=== PATIENT | female | born 1970 | race Caucasian/White ===

== ENCOUNTER 2016-05-25 09:12 | Inpatient (IN) | payer BC, OTHER ==
[~2016-05-25] VITALS: Ht 170.2 cm; Wt 66.9 kg
[2016-05-25] MEDS ORDERED: LABETALOL 100 MG/20 ML VIAL ONE (10:41)
[2016-05-25] MEDS ORDERED: ONDANSETRON 4 MG VIAL ONE (10:42)
[2016-05-25] MEDS ORDERED: SODIUM CHLORIDE 0.9% 1,000 ML ONE (12:34)
[2016-05-25] MEDS ORDERED: niCARdipine 20MG/200ML 200 ML IV ONE (13:05)
[2016-05-25] MEDS ORDERED: BISACODYL 10 MG SUPP RECTAL PRN (13:35)
[2016-05-25] MEDS ORDERED: PROMETHAZINE 25 MG/ML VIAL IV PRN (13:35)
[2016-05-25] MEDS ORDERED: ONDANSETRON 4 MG VIAL IV PRN (13:35)
[2016-05-25] MEDS ORDERED: ALU/MAG/SIM 30 ML UDC PO PRN (13:35)
[2016-05-25] MEDS ORDERED: MAG HYDROX 30 ML UDC PO PRN (13:35)
[2016-05-25] MEDS ORDERED: BISACODYL EC 5 MG TAB PO PRN (13:35)
[2016-05-25] MEDS ORDERED: cloNIDine 0.2 MG/24H TDSY TRANSDERM SCH (13:35)
[2016-05-25] MEDS ORDERED: GLUCAGON 1 MG VIAL IM PRN (13:35)
[2016-05-25] MEDS ORDERED: DEXTROSE 50% SYRINGE 50 ML IV PRN (13:35)
[2016-05-25] MEDS ORDERED: ACETAMINOPHEN 325 MG TAB PO PRN (13:35)
[2016-05-25] MEDS ORDERED: SALINE FLUSH 10 ML FLUSH PRN (13:35)
[2016-05-25] MEDS ORDERED: PROPOFOL 50ML VIAL IV ONE (13:51)
[2016-05-25] MEDS ORDERED: LIDOCAINE 2% SYR 5 ML IV ONE (13:51)
[2016-05-25] MEDS ORDERED: ACETAMINOPHEN 325 MG TAB ONE (15:39)
[2016-05-25] MEDS ORDERED: ENOXAPARIN 100 MG/ML MDV SUBQ ONE (17:00)
[2016-05-25 17:26] VITALS: BP_SYST 198; BP_SYST 200; RESP 18; TEMP 98.3
[2016-05-25 17:27] VITALS: Ht 170.2 cm; Wt 66.9 kg
[2016-05-25] MEDS ORDERED: MISSING DOSE XX ONE (17:35)
[2016-05-25] MEDS ORDERED: ENOXAPARIN 60 MG/0.6 ML SYR SUBQ ONE (17:40)
[2016-05-25] MEDS: VENLAFAXINE XR 150 MG CAP PO SCH (17:42)
[2016-05-25] MEDS: SODIUM CHLORIDE 0.9% 1,000 ML IV SCH (17:44)
[2016-05-25] MEDS ORDERED: LABETALOL 100 MG/20 ML VIAL IV PUSH ONE (18:55)
[2016-05-25] MEDS ORDERED: LORAZEPAM 2 MG/ML VIAL IV ONE (19:10)
[2016-05-25 19:50] VITALS: BP_SYST 120; RESP 18; TEMP 98.6
[2016-05-25] MEDS: SALINE FLUSH 10 ML FLUSH SCH (20:32)
[2016-05-25] MEDS: LEVEMIR INSULIN SUBQ SCH (20:33)
[2016-05-25 23:18] VITALS: BP_SYST 150; RESP 18; TEMP 98.2
[2016-05-26] VITALS (12 sets, daily range): BP systolic 95–158; RESP 12–18; TEMP 97.8–98.8
[2016-05-26] MEDS: SODIUM CHLORIDE 0.9% 1,000 ML IV SCH ×2 (05:51→22:25)
[2016-05-26] MEDS: SODIUM CHLORIDE 0.9% FLUSH BAG 500 ML IV SCH (06:00)
[2016-05-26] MEDS: SALINE FLUSH 10 ML FLUSH SCH ×2 (08:00→20:51)
[2016-05-26] MEDS ORDERED: KCL 20 MEQ/15 ML UDC PO ONE (08:45)
[2016-05-26] MEDS: VENLAFAXINE XR 150 MG CAP PO SCH (17:10)
[2016-05-26] MEDS: LEVEMIR INSULIN SUBQ SCH (20:51)
[2016-05-27 04:14] VITALS: BP_SYST 188; RESP 18; TEMP 97.6
[2016-05-27 05:30] VITALS: BP_SYST 116; RESP 18; TEMP 97.7
[2016-05-27] MEDS: SODIUM CHLORIDE 0.9% FLUSH BAG 500 ML IV SCH (05:56)
[2016-05-27 07:19] VITALS: BP_SYST 130; RESP 18; TEMP 97.8
[2016-05-27] MEDS: SALINE FLUSH 10 ML FLUSH SCH (08:00)
[2016-05-27] MEDS ORDERED: KCL 20 MEQ/15 ML UDC PO ONE (08:05)
[2016-05-27] MEDS ORDERED: DICYCLOMINE 10 MG CAP PO PRN (08:05)
[2016-05-27] MEDS ORDERED: AMITRIPTYLINE 10 MG TAB PO PRN (08:05)
[2016-05-27] MEDS ORDERED: amLODIPine 10 MG TAB PO SCH (08:05)
[2016-05-27] MEDS ORDERED: Atorvastatin 40 MG TAB PO SCH (08:05)
[2016-05-27] MEDS ORDERED: TRIAMTER/HCTZ 37.5/25MG TAB PO SCH (09:00)
[2016-05-27] MEDS ORDERED: ASPIRIN EC 81 MG TAB PO SCH (09:00)
[2016-05-27] MEDS ORDERED: Losartan 50 MG TAB PO SCH (09:00)
[2016-05-27] MEDS ORDERED: FERROUS SULF 325 MG TAB PO SCH (09:00)
[2016-05-27] MEDS ORDERED: METOPROLOL TART 100 MG TAB PO SCH (09:00)
[2016-05-27 10:58] VITALS: BP_SYST 94; RESP 18; TEMP 97.9
[2016-05-27 14:35] VITALS: BP_SYST 94; RESP 18; TEMP 97.9
[2016-05-27 15:10] VITALS: BP_SYST 136; RESP 18; TEMP 98.5
[2016-05-28] MEDS ORDERED: ERGOCALCIFEROL 50,000 UNITS (1.25 MG) CAP PO SCH (09:00)
== END 2016-05-27 17:01 | disposition home or self-care (01) | DRG 392 ==
LOC: ENRESERVDT → ENRESERVTM → ER 09:12 → EMR 13:32 → 4THE 17:18 → OBSVTOIN 05-26 15:06
PROVIDERS: ADMIT Internal Medicine; ATTEND Internal Medicine
PROC: 0DB28ZX Excision of Middle Esophagus, Via Natural or Artificial Opening Endoscopic, Diagnostic (ICD-10-PCS; 2016-05-26)
PROC: 0DB48ZX Excision of Esophagogastric Junction, Via Natural or Artificial Opening Endoscopic, Diagnostic (ICD-10-PCS; 2016-05-26)
PROC: 0DB68ZX Excision of Stomach, Via Natural or Artificial Opening Endoscopic, Diagnostic (ICD-10-PCS; principal; 2016-05-26 11:00)
DX: K20.9 Esophagitis, unspecified (principal); E11.42 Type 2 diabetes mellitus with diabetic polyneuropathy; Q21.1 Atrial septal defect; I69.954 Hemiplegia and hemiparesis following unspecified cerebrovascular disease affecting left non-dominant side; E86.9 Volume depletion, unspecified; D72.829 Elevated white blood cell count, unspecified; I10 Essential (primary) hypertension; E78.5 Hyperlipidemia, unspecified; F32.9 Major depressive disorder, single episode, unspecified; I69.922 Dysarthria following unspecified cerebrovascular disease; Z79.01 Long term (current) use of anticoagulants; Z79.82 Long term (current) use of aspirin; Z79.4 Long term (current) use of insulin
CPT/HCPCS: 36415; 70450; 80048; 80053; 81001; 81025; 82947; 83690; 85025; 87088; 88305; 88311; 93005; 99223; 99232

== ENCOUNTER 2016-06-06 14:34 | Inpatient (IN) | payer BC, OTHER ==
[~2016-06-06] VITALS: Ht 170.2 cm; Wt 65.9 kg
[2016-06-06] MEDS ORDERED: ONDANSETRON 4 MG VIAL ONE (14:43)
[2016-06-06] MEDS ORDERED: SODIUM CHLORIDE 0.9% 1,000 ML ONE (14:51)
[2016-06-06] MEDS ORDERED: PANTOPRAZOLE 40 MG VIAL IV ONE (14:51)
[2016-06-06] MEDS ORDERED: SODIUM CHLORIDE 0.9% 50 ML IV ONE (14:51)
[2016-06-06] MEDS ORDERED: LABETALOL 100 MG/20 ML VIAL ONE ×2 (14:51→16:58)
[2016-06-06] MEDS ORDERED: ONDANSETRON 4 MG VIAL IV PRN (17:40)
[2016-06-06] MEDS ORDERED: ALU/MAG/SIM 30 ML UDC PO PRN (17:40)
[2016-06-06] MEDS ORDERED: GLUCAGON 1 MG VIAL IM PRN (17:40)
[2016-06-06] MEDS ORDERED: PHARMACY TO DOSE ANTIBIOTIC IV SCH (17:40)
[2016-06-06] MEDS ORDERED: DEXTROSE 50% SYRINGE 50 ML IV PRN (17:40)
[2016-06-06] MEDS ORDERED: ACETAMINOPHEN 325 MG TAB PO PRN (17:40)
[2016-06-06] MEDS ORDERED: SALINE FLUSH 10 ML FLUSH PRN (17:40)
[2016-06-06] MEDS: **NOTE TO NURSE XX SCH ×2 (18:35→20:00)
[2016-06-06] MEDS ORDERED: Losartan 50 MG TAB PO ONE (18:45)
[2016-06-06] MEDS ORDERED: amLODIPine 10 MG TAB PO ONE (19:15)
[2016-06-06] MEDS: VANCOMYCIN 1,000 MG in SODIUM CHLORIDE 0.9% 250 ML IV SCH (20:00)
[2016-06-06] MEDS: SALINE FLUSH 10 ML FLUSH SCH (20:00)
[2016-06-06] MEDS ORDERED: MISSING DOSE XX ONE ×2 (22:15→22:20)
[2016-06-06 22:28] VITALS: Ht 170.2 cm; Wt 65.9 kg
[2016-06-06 22:29] VITALS: BP_SYST 190; BP_SYST 200; RESP 20; TEMP 99.4
[2016-06-06] MEDS: PIPERACIL/TAZO 3.375GM/50ML 50 ML IV SCH (22:32)
[2016-06-06] MEDS: LEVEMIR INSULIN SUBQ SCH (22:32)
[2016-06-06] MEDS: cloNIDine 0.2 MG/24H TDSY TRANSDERM SCH (22:32)
[2016-06-06] MEDS: SODIUM CHLORIDE 0.9% 1,000 ML IV SCH (22:33)
[2016-06-07] VITALS (8 sets, daily range): BP systolic 112–209; RESP 16–20; TEMP 98.1–99.1
[2016-06-07] MEDS: SODIUM CHLORIDE 0.9% FLUSH BAG 500 ML IV SCH (01:15)
[2016-06-07] MEDS ORDERED: MISSING DOSE XX ONE ×2 (05:40→07:40)
[2016-06-07] MEDS: PIPERACIL/TAZO 3.375GM/50ML 50 ML IV SCH ×5 (05:58→23:51)
[2016-06-07] MEDS: SALINE FLUSH 10 ML FLUSH SCH ×2 (07:36→19:51)
[2016-06-07] MEDS: cloNIDine 0.2 MG/24H TDSY TRANSDERM SCH (07:49)
[2016-06-07] MEDS: VANCOMYCIN 1,000 MG in SODIUM CHLORIDE 0.9% 250 ML IV SCH ×2 (08:35→19:51)
[2016-06-07] MEDS ORDERED: PANTOPRAZOLE 40 MG VIAL IV SCH (09:00)
[2016-06-07] MEDS ORDERED: AMITRIPTYLINE 10 MG TAB PO PRN (10:20)
[2016-06-07] MEDS ORDERED: PHARMACY TO DOSE VANCOMYCIN IV SCH (11:00)
[2016-06-07] MEDS ORDERED: PHARMACY TO DOSE ZOSYN IV SCH (11:00)
[2016-06-07] MEDS: ASPIRIN EC 81 MG TAB PO SCH (11:37)
[2016-06-07] MEDS: METOPROLOL TART 100 MG TAB PO SCH ×2 (11:37→19:52)
[2016-06-07] MEDS: SODIUM CHLORIDE 0.9% 1,000 ML IV SCH (11:54)
[2016-06-07] MEDS: METOCLOPRAMIDE 10 MG/2 ML VIAL IV PUSH SCH ×2 (12:55→16:58)
[2016-06-07] MEDS ORDERED: VENLAFAXINE XR 150 MG CAP PO SCH (17:00)
[2016-06-07] MEDS: SUCRALFATE 1GM/10ML SUSP PO SCH (17:59)
[2016-06-07] MEDS: PANTOPRAZOLE 40 MG VIAL IV SCH (19:51)
[2016-06-07] MEDS: LEVEMIR INSULIN SUBQ SCH (19:53)
[2016-06-07] MEDS ORDERED: amLODIPine 10 MG TAB PO SCH (21:00)
[2016-06-07] MEDS ORDERED: Atorvastatin 40 MG TAB PO SCH (21:00)
[2016-06-08 00:06] VITALS: BP_SYST 141; RESP 18; TEMP 98.6
[2016-06-08 03:26] VITALS: BP_SYST 136; RESP 18; TEMP 97.8
[2016-06-08] MEDS: SODIUM CHLORIDE 0.9% FLUSH BAG 500 ML IV SCH (04:16)
[2016-06-08] MEDS: METOCLOPRAMIDE 10 MG/2 ML VIAL IV PUSH SCH ×2 (04:17→11:00)
[2016-06-08] MEDS: SUCRALFATE 1GM/10ML SUSP PO SCH ×2 (04:17→11:00)
[2016-06-08] MEDS: PIPERACIL/TAZO 3.375GM/50ML 50 ML IV SCH ×2 (05:52→13:34)
[2016-06-08] MEDS: VANCOMYCIN 1,000 MG in SODIUM CHLORIDE 0.9% 250 ML IV SCH (08:00)
[2016-06-08] MEDS: SALINE FLUSH 10 ML FLUSH SCH (08:00)
[2016-06-08] MEDS: METOPROLOL TART 100 MG TAB PO SCH (09:00)
[2016-06-08] MEDS ORDERED: FERROUS SULF 325 MG TAB PO SCH (09:00)
[2016-06-08] MEDS: PANTOPRAZOLE 40 MG VIAL IV SCH (09:00)
[2016-06-08] MEDS: ASPIRIN EC 81 MG TAB PO SCH (09:00)
[2016-06-08 16:21] VITALS: BP_SYST 135; RESP 18; TEMP 97.8
[2016-06-08 17:19] VITALS: BP_SYST 135; RESP 18; TEMP 97.8
== END 2016-06-08 17:40 | disposition home or self-care (01) | DRG 305 ==
LOC: ENRESERVDT → ENRESERVTM → ER 14:34 → ENPENDDIS 18:10 → EMR 18:10 → 4THE 21:36
PROVIDERS: ADMIT Family Medicine Addiction Medicine; ATTEND Family Medicine Addiction Medicine
DX: I16.0 Hypertensive urgency (principal); N17.9 Acute kidney failure, unspecified; E11.42 Type 2 diabetes mellitus with diabetic polyneuropathy; K22.10 Ulcer of esophagus without bleeding; E11.65 Type 2 diabetes mellitus with hyperglycemia; Q21.1 Atrial septal defect; R11.2 Nausea with vomiting, unspecified; D72.829 Elevated white blood cell count, unspecified; R00.0 Tachycardia, unspecified; F32.9 Major depressive disorder, single episode, unspecified; E78.5 Hyperlipidemia, unspecified; Z86.73 Personal history of transient ischemic attack (TIA), and cerebral infarction without residual deficits; Z87.898 Personal history of other specified conditions; Z79.01 Long term (current) use of anticoagulants; Z79.4 Long term (current) use of insulin
CPT/HCPCS: 36415; 71010; 78264; 80048; 80053; 80202; 81001; 82553; 82947; 83605; 83690; 84439; 84443; 84484; 85025; 87040; 93005; 94799; 96361; 96374; 96375; 96376; 99223; 99233; 99239